=== PATIENT | female | born 1965 | race Caucasian/White ===

== ENCOUNTER 2017-03-01 08:35 | Outpatient (CLI) | payer BC, OTHER ==
--- NOTE | 2017-03-01 09:15 | RAD ---
CHEST TWO VIEWS: HISTORY: Cough. FINDINGS: Heart size and mediastinum are within normal limits. Lungs are clear of infiltrates. No significant bony findings. IMPRESSION: No active intrathoracic disease. POS: [facility]
== END 2017-03-01 08:36 | disposition home or self-care (01) ==
LOC: SCSRAD 08:35
PROVIDERS: ATTEND Family Medicine
DX: J21.9 Acute bronchiolitis, unspecified (principal)
CPT/HCPCS: 71046

== ENCOUNTER 2017-12-20 09:19 | Outpatient (CLI) | payer BC, OTHER ==
--- NOTE | 2017-12-20 10:28 | RAD ---
CHEST 2 VIEWS: INDICATION: Cough and fever. COMPARISON: Prior exam dated 03/01/2017. FINDINGS: There is mild scarring over the left lower lobe. This is stable. No confluent airspace opacity is e vident. Heart size is normal. Pulmonary vasculature appears within normal limits. No pleural effus ion or pneumothorax is evident. No acute osseous abnormality is evident. IMPRESSION: No acute cardiopulmonary abnormality. POS: [facility]
== END 2017-12-20 09:20 | disposition home or self-care (01) ==
LOC: SCSRAD 09:19
PROVIDERS: ATTEND Family Medicine
DX: J40 Bronchitis, not specified as acute or chronic (principal)
CPT/HCPCS: 71046; 87086